=== PATIENT | female | born 1980 ===

== ENCOUNTER 2017-05-06 15:21 | Observation (INO) | payer OTHER ==
[2017-05-06] MEDS ORDERED: Albuterol-Ipratrop 3 mg / 0.5 (3 ml) UD INH STA (16:11)
[2017-05-06] MEDS ORDERED: Sodium Chloride 0.9% 1,000 ML IV STA (16:11)
[2017-05-06 16:34] LABS: BASO % 0.2 % (0.0-2.0); EOS % 0.4 % (0.0-4.0); HEMOGLOBIN 8.8 g/dL (12.0-16.0); LYMPH # 0.3 K/uL (1.0-4.3); MEAN CELL VOLUME 67.1 fl (81.0-99.0); MEAN CORPUSCULAR HEMOGLOBIN 20.6 pg (27.0-31.0); MEAN CORPUSCULAR HGB CONC 30.7 g/dL (33.0-37.0); MEAN PLATELET VOLUME 8.7 fl (7.2-11.7); MONO # 0.8 K/uL (0.0-0.8); MONO % 9.2 % (0.0-10.0); NEUT # 7.1 K/uL (1.8-7.0); NEUT % 86.2 % (50.0-75.0); NRBC % 0.3 % (0.0-0.0); PLATELET COUNT 276 K/uL (130-400); RBC 4.26 Mil/uL (3.80-5.20); RED CELL DISTRIBUTION WIDTH 16.1 % (11.5-14.5); WHITE BLOOD COUNT 8.2 K/uL (4.8-10.8)
[2017-05-06] MEDS ORDERED: Albuterol-Ipratrop 3 mg / 0.5 (3 ml) UD ONE (16:41)
[2017-05-06 16:49] LABS: ALB/GLOB RATIO 1.3 (1.0-2.1); ALBUMIN 4.7 g/dL (3.5-5.0); ALT/SGPT 34 U/L (9-52); AST/SGOT 28 U/L (14-36); BLOOD UREA NITROGEN 4 mg/dl (7-17); GFR AFRICAN-AMERICAN > 60; GFR NON-AFRICAN AMERICAN > 60
--- NOTE | 2017-05-06 17:08 | ED PDOC ---
HPI: General Adult Time Seen by Provider: 05/06/17 15:45 Chief Complaint (Nursing): Flu-like Symptoms Chief Complaint (Provider): Flu History Per: Patient History/Exam Limitations: no limitations Onset/Duration Of Symptoms: Days (x1) Additional Complaint(s): Kelli Estevez, a 36 year old female presents to the Emergency Department complaining of dry cough, frontal headache, SOB and myalgia onset last night . The patient took Tylenol last night and nothing this morning prior to coming to the Emergency Department. Denies sore throat, chest pain, or distress. PMD: Family Provider Past Medical History Reviewed: Historical Data, Nursing Documentation, Vital Signs Vital Signs: Last Vital Signs Temp 98.6 F 05/06/17 15:35 Pulse 114 H 05/06/17 15:35 Resp 16 05/06/17 15:35 BP 145/81 05/06/17 15:35 Pulse Ox 100 05/06/17 18:00 - Medical History PMH: No Chronic Diseases - Surgical History Surgical History: No Surg Hx - Family History Family History: States: Unknown Family Hx - Social History Current smoker - smoking cessation education provided: No Alcohol: None Drugs: Denies - Home Medications Home Medications: Ambulatory Orders Medication Instructions Recorded Sulfamethoxazole/Trimethoprim 1 tab PO BID #14 tab 05/12/15 [Bactrim DS 800 mg-160 mg] - Allergies Allergies/Adverse Reactions: Allergies Allergy/AdvReac Type Severity Reaction Status Date / Time No Known Allergies Allergy Verified 05/06/17 15:34 Review of Systems ROS Statement: Except As Marked, All Systems Reviewed And Found Negative Constitutional: Negative for: Fever, Chills ENT: Positive for: Other (no sore throat) Cardiovascular: Negative for: Chest Pain Respiratory: Positive for: Cough. Negative for: Shortness of Breath Gastrointestinal: Negative for: Nausea, Vomiting, Diarrhea Physical Exam - Reviewed Nursing Documentation Reviewed: Yes Vital Signs Reviewed: Yes - Physical Exam Appears: Positive for: Well, Non-toxic, No Acute Distress Head Exam: Positive for: ATRAUMATIC, NORMAL INSPECTION, NORMOCEPHALIC Skin: Positive for: Warm, Dry, Pallor Eye Exam: Positive for: EOMI, PERRL, Other (Pale conjunctivae) ENT: Positive for: Normal ENT Inspection Neck: Positive for: Normal, Painless ROM Cardiovascular/Chest: Positive for: Tachycardia. Negative for: Irregularly Irregular Respiratory: Positive for: Normal Breath Sounds. Negative for: Accessory Muscle Use, Respiratory Distress Gastrointestinal/Abdominal: Positive for: Normal Exam, Bowel Sounds, Soft. Negative for: Tenderness Neurologic/Psych: Positive for: Alert, Oriented (x3) - Laboratory Results Result Diagrams: 05/06/17 16:22 05/06/17 16:22 - ECG Interpretation Of ECG: NSR @ 93. O2 Sat by Pulse Oximetry: 100 (RA) Pulse Ox Interpretation: Normal - Radiology X-Ray: Interpreted by Me X-Ray Interpretation: Infiltrates (RML) - Progress Condition: Unchanged (Pt remains tachycardic after IVF bolus.) Medical Decision Making Medical Decision Making: Time: 16:10 Initial Plan: --EKG --CMP --CBC --Chest X-ray --Duoned 3mg/0.5mg (3ml) UD --Normal Saline 1,000ml IV 1,000 mls/hr --Peak Flow Pre/Post TX --Influenza A B --Reevaluation Scribe Attestation: Documented by Jazmine Gasca, acting as a scribe for Yany Johnson MD Provider Scribe Attestation: All medical record entries made by the Scribe were at my direction and personally dictated by me. I have reviewed the chart and agree that the record accurately reflects my personal performance of the history, physical exam, medical decision making, and the department course for this patient. I have also personally directed, reviewed, and agree with the discharge instructions and disposition. Disposition - Clinical Impression Clinical Impression: Pneumonia, Symptomatic anemia - Patient ED Disposition Is Patient to be Admitted: Yes - Disposition Disposition Time: 18:29 Condition: STABLE Forms: PlanG (Danish) - Pt Status Changed To: Hospital Disposition Of: Inpatient - Admit Certification Admit to Inpatient:: After my assessment, the patient will require hospitalization for at least two midnights. This is because of the severity of symptoms shown, intensity of services needed, and/or the medical risk in this patient being treated as an outpatient. - POA Present On Arrival: None
[2017-05-06 17:57] LABS: INR 1.2 (0.9-1.2); PARTIAL THROMBOPLASTIN TIME 19.3 Seconds (25.6-37.1); PROTHROMBIN TIME 12.8 Seconds (9.8-13.1)
[2017-05-06] MEDS ORDERED: Azithromycin 500 MG in Sodium Chloride 0.9% 250 ML IV STA (17:57)
[2017-05-06] MEDS ORDERED: Azithromycin 500 MG IV IVPB ONE (18:31)
--- NOTE | 2017-05-06 19:01 | CP.PCM.HP ---
History of Present Illness - History of Present Illness History of Present Illness: 36 yo female with history of anemia came in because of SOB, chest pain, headache and body ache since last night. Her condition did not improved and admitted getting tired with palpitation. Present on Admission - Present on Admission Any Indicators Present on Admission: No History of DVT/PE: No History of Uncontrolled Diabetes: No Urinary Catheter: No Decubitus Ulcer Present: No Review of Systems - Review of Systems All systems: reviewed and no additional remarkable complaints except (aside from those mentioned above, 12 point system review were negative by me) Past Patient History - Infectious Disease Hx of Infectious Diseases: None - Tetanus Immunizations Tetanus Immunization: Unknown - Past Medical History & Family History Past Medical History?: No Past Family History: Reviewed and not pertinent - Past Social History Smoking Status: Never Smoked Alcohol: None Drugs: Denies Home Situation {Lives}: With Family Domestic Violence: Negative - CARDIAC Hx Cardiac Disorders: No - PULMONARY Hx Respiratory Disorders: No - NEUROLOGICAL Hx Neurological Disorder: No - HEENT Hx HEENT Problems: No - RENAL Hx Chronic Kidney Disease: No - ENDOCRINE/METABOLIC Hx Endocrine Disorders: No - HEMATOLOGICAL/ONCOLOGICAL Hx Anemia: Yes - INTEGUMENTARY Hx Dermatological Problems: No - MUSCULOSKELETAL/RHEUMATOLOGICAL Hx Musculoskeletal Disorders: No - GASTROINTESTINAL Hx Gastrointestinal Disorders: No - GENITOURINARY/GYNECOLOGICAL Hx Genitourinary Disorders: No - PSYCHIATRIC Hx Psychophysiologic Disorder: No Hx Substance Use: No - SURGICAL HISTORY Hx Surgeries: No - ANESTHESIA Hx Anesthesia: No Meds Allergies/Adverse Reactions: Allergies Allergy/AdvReac Type Severity Reaction Status Date / Time No Known Allergies Allergy Verified 05/06/17 15:34 Physical Exam - Constitutional Appears: No Acute Distress - Head Exam Head Exam: ATRAUMATIC - Eye Exam Eye Exam: absent: Scleral icterus - ENT Exam ENT Exam: Mucous Membranes Moist - Neck Exam Neck exam: Negative for: Meningismus - Respiratory Exam Respiratory Exam: absent: Rhonchi, Wheezes, Respiratory Distress - Cardiovascular Exam Cardiovascular Exam: REGULAR RHYTHM, +S1, +S2 - GI/Abdominal Exam GI & Abdominal Exam: Soft. absent: Tenderness - Rectal Exam Rectal Exam: Deferred - Extremities Exam Extremities exam: Negative for: calf tenderness, pedal edema - Back Exam Back exam: absent: tenderness - Neurological Exam Neurological exam: Alert, Oriented x3 - Psychiatric Exam Psychiatric exam: Normal Affect - Skin Skin Exam: Dry, Intact Results - Vital Signs Recent Vital Signs: Last Vital Signs Temp 98.6 F 05/06/17 15:35 Pulse 114 H 05/06/17 15:35 Resp 16 05/06/17 15:35 BP 145/81 05/06/17 15:35 Pulse Ox 100 05/06/17 18:30 - Labs Result Diagrams: 05/06/17 16:22 05/06/17 16:22 Labs: Laboratory Results - last 24 hr 05/06/17 05/06/17 05/06/17 16:22 16:22 16:22 WBC 8.2 RBC 4.26 Hgb 8.8 L Hct 28.6 L MCV 67.1 L MCH 20.6 L MCHC 30.7 L RDW 16.1 H Plt Count 276 MPV 8.7 Neut % (Auto) 86.2 H Lymph % (Auto) 4.0 L [place] % (Auto) 9.2 Eos % (Auto) 0.4 Baso % (Auto) 0.2 Neut # 7.1 H Lymph # 0.3 L [place] # 0.8 Eos # 0.0 Baso # 0.0 PT INR APTT D-Dimer, Quantitative Sodium 138 Potassium 3.6 Chloride 100 Carbon Dioxide 24 Anion Gap 18 BUN 4 L Creatinine 0.5 L Est GFR ( Amer) > 60 Est GFR (Non-Af Amer) > 60 Random Glucose 115 H Calcium 9.0 Total Bilirubin 0.6 AST 28 ALT 34 Alkaline Phosphatase 70 Total Protein 8.4 H Albumin 4.7 Globulin 3.8 Albumin/Globulin Ratio 1.3 Influenza Typ A,B (EIA) Negative for flu a/b BBK History Checked 05/06/17 05/06/17 17:20 18:05 WBC RBC Hgb Hct MCV MCH MCHC RDW Plt Count MPV Neut % (Auto) Lymph % (Auto) [place] % (Auto) Eos % (Auto) Baso % (Auto) Neut # Lymph # [place] # Eos # Baso # PT 12.8 INR 1.2 APTT 19.3 L D-Dimer, Quantitative 193 Sodium Potassium Chloride Carbon Dioxide Anion Gap BUN Creatinine Est GFR ( Amer) Est GFR (Non-Af Amer) Random Glucose Calcium Total Bilirubin AST ALT Alkaline Phosphatase Total Protein Albumin Globulin Albumin/Globulin Ratio Influenza Typ A,B (EIA) BBK History Checked Patient has bt Assessment & Plan - Assessment and Plan (Free Text) Assessment: 36 yo female with history of anemia came in because of SOB, chest pain, headache and body ache since last night. Her condition did not improved and admitted getting tired with palpitation. 1. Flu-like Syndrome CXray - no infiltrate follow up blood culture will hold antibiotics since no evidence of infectious process was found place on observation on med/surg 2. Anemia probably iron deficiency from menorrhagia transfuse 2 units of PRBC as patient was symptomatic with SOB, tachycardia and feeling very tired and weak can follow up with [employer] [employer] as outpatient when discharge
[2017-05-06 19:16] LABS: BANDS 3 % (0-2); LYMPHOCYTE 5 % (20-50); MONOCYTE 9 % (0-10); NEUTROPHIL 83 % (42-75); TOTAL CELLS COUNTED 100
[2017-05-06 19:17] LABS: ANISOCYTOSIS MODERATE; MICROCYTOSIS MODERATE; OVALOCYTES SLIGHT; PLATELET ESTIMATE NORMAL (NORMAL); POIKILOCYTOSIS MODERATE; POLYCHROMIC SLIGHT; SCHISTOCYTES SLIGHT; TARGET CELLS SLIGHT; TEARDROP CELLS SLIGHT
[2017-05-06 19:18] LABS: HYPOCHROMIC SLIGHT
[2017-05-06] MEDS: Sodium Chloride 0.9% 1,000 ML IV SCH (20:23)
[2017-05-06] MEDS ORDERED: Albuterol-Ipratrop 3 mg / 0.5 (3 ml) UD INH PRN (22:22)
[2017-05-06] MEDS ORDERED: Oxycodone/Acetaminophen 5/325 mg Tab PO ONE (22:22)
[2017-05-07] MEDS: Sodium Chloride 0.9% 1,000 ML IV SCH (05:49)
[2017-05-07] MEDS ORDERED: Influenza Vaccine 18yr & older 0.5 ML/45 MCG SYR IM ONE (06:00)
[2017-05-07 07:08] VITALS: TEMP 99.8
[2017-05-07 08:17] VITALS: BP 116/75; PULSE 88; RESP 20; O2SAT 99
[2017-05-07] MEDS ORDERED: Pantoprazole 40 mg EC Tab PO SCH (09:00)
--- NOTE | 2017-05-07 09:16 | CP.PCM.DIS ---
Provider - Provider Date of Admission: 05/06/17 18:30 Attending physician: Kyle Bacon MD Primary care physician: none Time Spent in preparation of Discharge (in minutes): 20 Hospital Course - Lab Results Lab Results: Most Recent Lab Values WBC 8.2 K/uL (4.8-10.8) 05/06/17 16:22 RBC 4.26 Mil/uL (3.80-5.20) 05/06/17 16:22 Hgb 8.8 g/dL (12.0-16.0) L 05/06/17 16:22 Hct 28.6 % (34.0-47.0) L 05/06/17 16:22 MCV 67.1 fl (81.0-99.0) L 05/06/17 16:22 MCH 20.6 pg (27.0-31.0) L 05/06/17 16: MCHC 30.7 g/dL (33.0-37.0) L 05/06/17 16: RDW 16.1 % (11.5-14.5) H 05/06/17 16:22 Plt Count 276 K/uL (130-400) 05/06/17 16:22 MPV 8.7 fl (7.2-11.7) 05/06/17 16:22 Neut % (Auto) 86.2 % (50.0-75.0) H 05/06/17 16:22 Lymph % (Auto) 4.0 % (20.0-40.0) L 05/06/17 16:22 [place] % (Auto) 9.2 % (0.0-10.0) 05/06/17 16:22 Eos % (Auto) 0.4 % (0.0-4.0) 05/06/17 16:22 Baso % (Auto) 0.2 % (0.0-2.0) 05/06/17 16:22 Neut # 7.1 K/uL (1.8-7.0) H 05/06/17 16:22 Lymph # 0.3 K/uL (1.0-4.3) L 05/06/17 16:22 [place] # 0.8 K/uL (0.0-0.8) 05/06/17 16:22 Eos # 0.0 K/uL (0.0-0.7) 05/06/17 16:22 Baso # 0.0 K/uL (0.0-0.2) 05/06/17 16:22 Neutrophils % (Manual) 83 % (42-75) H 05/06/17 16:22 Band Neutrophils % 3 % (0-2) H 05/06/17 16:22 Lymphocytes % (Manual) 5 % (20-50) L 05/06/17 16:22 Monocytes % (Manual) 9 % (0-10) 05/06/17 16:22 Platelet Estimate Normal (NORMAL) 05/06/17 16:22 Polychromasia Slight 05/06/17 16:22 Hypochromasia (manual) Slight 05/06/17 16:22 Poikilocytosis (manual Moderate 05/06/17 16:22 Anisocytosis (manual) Moderate 05/06/17 16:22 Microcytosis (manual) Moderate 05/06/17 16:22 Target Cells Slight 05/06/17 16:22 Tear Drop Cells Slight 05/06/17 16:22 Ovalocytes Slight 05/06/17 16:22 Schistocytes Slight 05/06/17 16:22 PT 12.8 Seconds (9.8-13.1) 05/06/17 17:20 INR 1.2 (0.9-1.2) 05/06/17 17:20 APTT 19.3 Seconds (25.6-37.1) L 05/06/17 17:20 D-Dimer, Quantitative 193 ng/mlDDU (0-230) 05/06/17 17:20 Sodium 138 mmol/l (132-148) 05/06/17 16:22 Potassium 3.6 MMOL/L (3.6-5.0) 05/06/17 16:22 Chloride 100 mmol/L (98-107) 05/06/17 16:22 Carbon Dioxide 24 mmol/L (22-30) 05/06/17 16:22 Anion Gap 18 (10-20) 05/06/17 16:22 BUN 4 mg/dl (7-17) L 05/06/17 16:22 Creatinine 0.5 mg/dl (0.7-1.2) L 05/06/17 16:22 Est GFR ( Amer) > 60 05/06/17 16:22 Est GFR (Non-Af Amer) > 60 05/06/17 16:22 Random Glucose 115 mg/dL (65-105) H 05/06/17 16: Calcium 9.0 mg/dL (8.4-10.2) 05/06/17 16: Total Bilirubin 0.6 mg/dl (0.2-1.3) 05/06/17 16: AST 28 U/L (14-36) 05/06/17 16: ALT 34 U/L (9-52) 05/06/17 16: Alkaline Phosphatase 70 U/L (38-126) 05/06/17 16: Total Protein 8.4 G/DL (6.3-8.2) H 05/06/17: Albumin 4.7 g/dL (3.5-5.0) 05/06/17: Globulin 3.8 gm/dL (2.2-3.9) 05/06/17: Albumin/Globulin Ratio 1.3 (1.0-2.1) 05/06/17 16: Influenza Typ A,B (EIA) Negative for flu a/b (NEGATIVE) 05/06/17 16: Blood Type O POSITIVE 05/06/17 18: Antibody Screen Negative 05/06/17 18: Crossmatch See Detail 05/06/17 18:05 BBK History Checked Patient has bt 05/06/17 18:05 - Hospital Course Hospital Course: 36 year old female presents to the Emergency Department complaining of dry cough, frontal headache, SOB and myalgia onset last night 05/05/17. The patient took Tylenol and came to ER. Complained of SOB with coughing spells nad sore throat. In ER found to have Tmax 100 normal WBC, tachycardic and normal CXR with no infiltrates . Hgb 8.8, influenza negative Her physical exam was negative for throat exudates, lungs clear with no wheezing no rhonchi Patient was placed under observation for Tachycardia, symptomatic anemia and URI She was given IVF, transfused with 2 unit PRBC She is hemodynamically stable Tmax 99.8, saturating 100 % on 2 L O2 via [place] , RR 18 HR 85 Feeling better . Will discharge patient home on Tylernol , motrin PRN for fever and myalgia, Zithromax PO for URI , Robitussin with codeine. Advise to follow up with PMD or [facility] in 1 week DX Upper respiratory infection Symptomatic anemia Viral syndrome Discharge Exam - Head Exam Head Exam: ATRAUMATIC, NORMOCEPHALIC - Eye Exam Eye Exam: EOMI, Normal appearance, PERRL Pupil Exam: NORMAL ACCOMODATION - ENT Exam ENT Exam: Mucous Membranes Moist, Normal Exam, Normal Oropharynx - Neck Exam Neck exam: Full Rom, Normal Inspection - Respiratory Exam Respiratory Exam: Clear to PA & Lateral, NORMAL BREATHING PATTERN. absent: Rales, Rhonchi, Wheezes - Cardiovascular Exam Cardiovascular Exam: REGULAR RHYTHM, RRR, +S1, +S2. absent: JVD - GI/Abdominal Exam GI & Abdominal Exam: Normal Bowel Sounds, Soft. absent: Distended, Guarding, Rebound, Tenderness - Rectal Exam Rectal Exam: Deferred - Extremities Exam Extremities exam: normal capillary refill, normal inspection, pedal pulses present - Back Exam Back exam: NORMAL INSPECTION - Neurological Exam Neurological exam: Alert, CN II-XII Intact, Oriented x3, Reflexes Normal - Psychiatric Exam Psychiatric exam: Normal Affect, Normal Mood - Skin Skin Exam: Dry, Intact, Normal Color, Warm Discharge Plan - Discharge Medications Prescriptions: Azithromycin [Zithromax] 500 mg PO DAILY #7 tablet - Follow Up Plan Condition: STABLE Disposition: HOME/ ROUTINE Patient education suggested?: Yes Instructions: Viral Syndrome (DC), Upper Respiratory Infection (DC) Referrals: [facility] [place] [Outside]
--- NOTE | 2017-05-07 10:51 | RAD ---
HISTORY: Cough. COMPARISON: AllNo prior. TECHNIQUE: Chest PA and lateral FINDINGS: LUNGS: No active pulmonary disease. PLEURA: No significant pleural effusion identified. No pneumothorax apparent. CARDIOVASCULAR: Normal. OSSEOUS STRUCTURES: No significant abnormalities. VISUALIZED UPPER ABDOMEN: Normal. OTHER FINDINGS: None. IMPRESSION: No active disease.
--- NOTE | 2017-05-07 18:09 | CARD ---
APPROVED REPORT EKG Measurement Heart [id number] <Conclusion> Normal sinus rhythm Cannot rule out Inferior infarct, age undetermined Abnormal ECG
== END 2017-05-07 13:30 | disposition home or self-care (01) ==
LOC: H.ER 15:21 → INTOOBSV 18:30 → H.ERHOLD 18:30 → H.MEDSURG1 21:15
PROC: 30233N1 Transfusion of Nonautologous Red Blood Cells into Peripheral Vein, Percutaneous Approach (ICD-10-PCS; principal; 2017-05-06)
DX: D64.9 Anemia, unspecified (principal); J06.9 Acute upper respiratory infection, unspecified; N92.0 Excessive and frequent menstruation with regular cycle
CPT/HCPCS: 36430; 71046; 80053; 81025; 85025; 85378; 85610; 85730; 86850; 86900; 86920; 87804; 93005; 96360; 96361; 99284; G0378; J0456; J7040; P9051

== ENCOUNTER 2017-05-08 22:55 | Emergency (ER) | payer OTHER ==
--- NOTE | 2017-05-09 00:32 | ED PDOC ---
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 states yesterday at 1900 she developed a sudden onset of fever. Reports she initially came to ED on 05/06/2016 and was admitted into the hospital for anemia and pneumonia and dc'd on 05/07/2016. Reports cough resolved during her hospital stay but then returned later on that evening. Reports having SOB and bodyaches. Denies hemoptysis, leg pain, recent travel, vomiting, diarrhea, abdominal pain, dysuria. Past Medical History Reviewed: Historical Data, Nursing Documentation, Vital Signs Vital Signs: Last Vital Signs Temp 100.9 F H 05/09/17 02:13 Pulse 84 05/09/17 04:08 Resp 16 05/09/17 04:08 BP 141/74 05/09/17 02:13 Pulse Ox 98 05/09/17 04:08 - Medical History PMH: Anemia Denies: Chronic Kidney Disease - Family History Family History: States: No Known Family Hx - Home Medications Home Medications: Ambulatory Orders Medication Instructions Recorded Azithromycin [Zithromax] 500 mg PO DAILY #7 tablet 05/07/17 Oseltamivir [Tamiflu] 75 mg PO BID #10 cap 05/09/17 - Allergies Allergies/Adverse Reactions: Allergies Allergy/AdvReac Type Severity Reaction Status Date / Time No Known Allergies Allergy Verified 05/06/17 15:34 Review of Systems ROS Statement: Except As Marked, All Systems Reviewed And Found Negative Constitutional: Positive for: Fever, Malaise Respiratory: Positive for: Cough, Shortness of Breath Physical Exam - Reviewed Nursing Documentation Reviewed: Yes Vital Signs Reviewed: Yes - Physical Exam Appears: Positive for: Well, Non-toxic, No Acute Distress Head Exam: Positive for: ATRAUMATIC, NORMAL INSPECTION, NORMOCEPHALIC Skin: Positive for: Normal Color, Warm. Negative for: Rash Eye Exam: Positive for: EOMI, Normal appearance, PERRL ENT: Positive for: Normal ENT Inspection Neck: Positive for: Normal, Painless ROM Cardiovascular/Chest: Positive for: Regular Rate, Rhythm Respiratory: Positive for: Normal Breath Sounds. Negative for: Decreased Breath Sounds, Accessory Muscle Use, Crackles, Rales, Rhonchi, Wheezing, Respiratory Distress Gastrointestinal/Abdominal: Positive for: Normal Exam, Bowel Sounds, Soft. Negative for: Tenderness Back: Positive for: Normal Inspection Extremity: Positive for: Normal ROM Neurologic/Psych: Positive for: Alert, Oriented. Negative for: Aphasia, Facial Droop - Laboratory Results Result Diagrams: 05/09/17 00:34 05/09/17 00:34 - ECG O2 Sat by Pulse Oximetry: 96 - Radiology X-Ray: Interpreted by Me (CXR) X-Ray Interpretation: No Acute Disease - Progress ED Course And Treament: Labs ordered. CXR, EKG ordered. On re-evaluation, pt. reports feeling much better but still with mild headache. Toradol 15mg IV, tamiflu PO ordered. Pt. evaluated by Dr. Hernandez and agrees with plan. Repeat HR: 84 Disposition - Clinical Impression Clinical Impression: Influenza - Patient ED Disposition Is Patient to be Admitted: No - Disposition Referrals: [facility] [Outside] Disposition: Routine/Home Disposition Time: 04:15 Condition: IMPROVED Additional Instructions: Take Tylenol or Motrin for fever. Return to ED immediately for any concerns or questions. Prescriptions: Oseltamivir [Tamiflu] 75 mg PO BID #10 cap Instructions: Influenza in Children (ED) Forms: [employer] (Danish) Print Language: [place] ISLAND[place]
[2017-05-09 00:49] LABS: VENOUS BLOOD GAS PCO2 40 mmHg (40-60); VENOUS BLOOD GAS PO2 20 mm/Hg (30-55); VENOUS BLOOD PH 7.43 (7.32-7.43)
[2017-05-09 00:56] LABS: SQUAMOUS EPITHIAL 1 /hpf (0-5); URINE BILIRUBIN NEGATIVE (NEGATIVE); URINE BLOOD SMALL (NEGATIVE); URINE CLARITY SLIGHTY-CLOUDY (Clear); URINE COLOR YELLOW (YELLOW); URINE GLUCOSE (UA) NEG (Normal); URINE LEUKOCYTE ESTERASE NEG Leu/uL (Negative); URINE NITRATE NEGATIVE (NEGATIVE); URINE PROTEIN 100 mg/dL (NEGATIVE); URINE UROBILINOGEN 0.2-1.0 mg/dL (0.2-1.0)
[2017-05-09 00:58] LABS: BASO % 0.2 % (0.0-2.0); EOS % 0.1 % (0.0-4.0); HEMOGLOBIN 11.3 g/dL (12.0-16.0); LYMPH # 0.3 K/uL (1.0-4.3); LYMPH % 2.8 % (20.0-40.0); MEAN CELL VOLUME 70.1 fl (81.0-99.0); MEAN CORPUSCULAR HEMOGLOBIN 21.6 pg (27.0-31.0); MEAN CORPUSCULAR HGB CONC 30.8 g/dL (33.0-37.0); MONO # 0.6 K/uL (0.0-0.8); MONO % 4.6 % (0.0-10.0); NEUT # 11.5 K/uL (1.8-7.0); NEUT % 92.3 % (50.0-75.0); NRBC % 0.1 % (0.0-0.0); PLATELET COUNT 244 K/uL (130-400); RBC 5.26 Mil/uL (3.80-5.20); RED CELL DISTRIBUTION WIDTH 18.4 % (11.5-14.5); WHITE BLOOD COUNT 12.5 K/uL (4.8-10.8)
[2017-05-09 01:05] LABS: ALB/GLOB RATIO 1.2 (1.0-2.1); ALBUMIN 4.7 g/dL (3.5-5.0); ALT/SGPT 43 U/L (9-52); AST/SGOT 38 U/L (14-36); BLOOD UREA NITROGEN 8 mg/dl (7-17); CALCIUM 9.2 mg/dL (8.4-10.2); GFR AFRICAN-AMERICAN > 60; GFR NON-AFRICAN AMERICAN > 60
[2017-05-09 02:15] VITALS: BP 141/74; TEMP 100.9
[2017-05-09] MEDS ORDERED: Sodium Chloride 0.9% 1,000 ML IV STA (02:28)
[2017-05-09 02:29] LABS: LYMPHOCYTE 2 % (20-50); MICROCYTOSIS SLIGHT; MONOCYTE 7 % (0-10); NEUTROPHIL 91 % (42-75); PLATELET ESTIMATE NORMAL (NORMAL); TOTAL CELLS COUNTED 100
[2017-05-09 02:30] LABS: ANISOCYTOSIS SLIGHT
[2017-05-09 02:31] LABS: HYPOCHROMIC SLIGHT
[2017-05-09 04:09] VITALS: PULSE 84; RESP 16
[2017-05-09 04:16] VITALS: O2SAT 96
--- NOTE | 2017-05-09 09:41 | RAD ---
HISTORY: cough COMPARISON: No prior. TECHNIQUE: Chest PA and lateral FINDINGS: LUNGS: Trace linear atelectasis or fibrosis in the left base once again. No alveolar infiltrate or pleural effusion bilaterally. PLEURA: No significant pleural effusion identified. No pneumothorax apparent. CARDIOVASCULAR: Normal. OSSEOUS STRUCTURES: No significant abnormalities. VISUALIZED UPPER ABDOMEN: Normal. OTHER FINDINGS: None. IMPRESSION: Persistent linear atelectasis or fibrosis left base. Remaining lung ayala remain clear. No definitive cardiac disease appreciable.
== END 2017-05-09 04:17 | disposition home or self-care (01) ==
LOC: H.ER 22:55
DX: J11.1 Influenza due to unidentified influenza virus with other respiratory manifestations (principal); D64.9 Anemia, unspecified
CPT/HCPCS: 71046; 80053; 81003; 81025; 82803; 85025; 86850; 86900; 87040; 87804; 96374; 99282; J1885; J7040